=== PATIENT | male | born 1985 ===

== ENCOUNTER 2022-06-13 12:44 | Emergency (ER) | payer SELFPAY ==
[2022-06-13 12:47] VITALS: BP 123/82; PULSE 71; RESP 20; TEMP 36.6; O2SAT 100; BMI 23.7
[2022-06-13 13:00] VITALS: BP 100/69; PULSE 84; O2SAT 97
[2022-06-13 13:09] VITALS: BP 123/80; PULSE 81; RESP 14; TEMP 36.4; O2SAT 100
[2022-06-13 13:15] VITALS: BP 125/81; PULSE 73; RESP 11; O2SAT 96
[2022-06-13 13:23] LABS: Lactate* 1.6 mmol/L (0.5-1.9)
[2022-06-13 13:26] LABS: Basophils Absolute Auto 0.02 K/uL (0.00-0.30); Basophils Percent Auto 0.4 % (0.0-3.0); Eosinophils Absolute Auto 0.15 K/uL (0.00-0.50); Eosinophils Percent Auto 2.6 % (0.0-7.0); Hematocrit 39.5 % (37.0-53.0); Hemoglobin* 13.6 gm/dL (13.5-17.5); Immature Granulocytes Abs Auto 0.01 K/uL (0.00-0.30); Lymphocytes Absolute Auto 1.53 K/uL (0.90-2.90); Lymphocytes Percent Auto 26.9 % (20-44); Mean Corpuscular HGB Conc 34 gm/dL (32-36); Mean Corpuscular Hemoglobin 30 pg (26-34); Mean Corpuscular Volume 86 fL (80-100); Monocytes Percent Auto 9.5 % (0.0-11.0); Neutrophils Absolute Auto 3.43 K/uL (1.7-7.0); Neutrophils Percent Auto 60.4 % (42.0-72.0); Platelet Count* 327 K/uL (140-440); RDW Coefficient of Variation % 12.4 % (11.5-15.5); Red Blood Count 4.58 m/uL (4.30-5.90); White Blood Count* 5.68 K/uL (4.50-11.00)
--- NOTE | 2022-06-13 13:26 | ED_ITS ---
HPI - General Adult General Date Seen: 06/13/22 Chief complaint: Overdose Stated complaint: Drug Ingestion Time Seen by Provider: 06/13/22 12:46 Source: patient History of Present Illness HPI narrative: Patient is a 36-year-old male who was at his grandmother's house. He was reportedly being loud and causing a disturbance, so police were called. On their arrival, they realized he had warrants out for arrest. They took him into custody, and EN route to long term he told them that he had ingested a packet of meth. He tells me he did this to avoid a drug charge. He says he has done this before on multiple occasions without any adverse consequences. He says the packet was intact, he says it was more than an ounce but less than an 8 ball. He has some heartburn, but denies any abdominal pain, nausea or vomiting. He does not have any chest pain or difficulty breathing. He is not tachycardic or febrile, nor is he agitated at this time. He was reported to tell the maintainer operator just to shoot him, as he ?just wanted to ?. He is very specific with me that he has no suicidal thoughts, does not want to . He denies ingesting the meth with intention to harm himself. He says he has never tried to harm him self. Does not have any history of depression or anxiety per his report. Is not supposed to be on any medications for mental health. Has never been hospitalized for mental health reasons. He also uses GHB, which he says he used last this morning. He denies alcohol use. He uses marijuana. He denies any other medical history aside from shoulder dislocation/subluxation. He does smoke cigarettes and requests a nicotine patch. Related Data Home Medications Medication Instructions Recorded Confirmed No Known Home Medications 06/13/22 06/13/22 Allergies Allergy/AdvReac Type Severity Reaction Status Date / Time No Known Drug Allergies Allergy Verified 06/13/22 12:47 Review of Systems Status of ROS: Reports: 10 or more systems reviewed and unremarkable except as noted in History and below [facility] Social History Smoking Status: Current every day smoker What tobacco products do you use: cigarettes Do you use any of these nicotine containing products: None Second hand tobacco smoke exposure: Yes How often do you have a drink containing alcohol: monthly or less How many standard drinks containing alcohol do you have on a typical day: 1 or 2 How often do you have six or more drinks on one occasion: Less than monthly AUDIT-C Alcohol total score: 2 Non-prescribed substance use: marijuana (any form), crack/cocaine, amphetamines/methamphetamines, sedatives/tranquilizers, opiods/painkillers and other Non-prescribed substance use details: GHB daily, whatever I can get my hands on Exam Narrative: Exam Narrative: Vital signs as noted above. In general, an alert, well-appearing patient. Head: Normocephalic, atraumatic. Eyes: Pupils are equal reactive. Extraocular movements are full. Conjunctivae are normal. ENT: Mucous membranes are moist. Throat is normal. Neck: Supple without lymphadenopathy. Heart: Regular rate and rhythm. No murmur or rub. Lungs: Clear bilaterally. No increased work of breathing, crackles or wheezes. Abdomen: Soft and nontender. No organomegaly. Extremities: Well perfused. No edema. No calf tenderness. Pulses intact. Neurologic: Patient is alert and oriented to person and place. Speech is fluent. Face is symmetric. Moves all extremities equally. Affect: Normal, cooperative. Skin: Warm and dry. Well perfused. Const: Vital Signs, click to edit/add: Vital Signs - 24 hr 06/13/22 12:47 06/13/22 13:09 06/13/22 13:00 Temperature 97.9 F 97.6 F Pulse Rate [Left P ulse Oximeter] 71 81 84 Respiratory Rate 20 14 Blood Pressure [Le ft Upper Arm] 123/82 123/80 100/69 Pulse Oximetry 100 100 97 Oxygen Delivery Me thod Room Air Room Air Room Air 06/13/22 13:15 06/13/22 13:30 06/13/22 14:00 Temperature Pulse Rate [Left P ulse Oximeter] 73 76 75 Respiratory Rate 11 L 15 16 Blood Pressure [Le ft Upper Arm] 125/81 121/89 116/82 Pulse Oximetry 96 94 100 Oxygen Delivery Me thod Documenting provider has reviewed patient's vital signs: yes Course Course Hospital Course: Patient is maintained on the monitor and oximetry. An IV will be established. EKG by my review showed a normal sinus rhythm, ventricular rate of 65. No acute ST segment changes. Normal QT. labs pending at this time. Talk with poison Control who recommended 8 hour observation from the time of ingestion, which would be at approximately 8:30 p.m.. At this time, he is not showing any signs of toxicity such as agitation, hyperthermia, tachycardia. Will observe closely and await lab results. Given that the ingestion was to avoid arrest, and that he denies any suicidality to me, I think that his off hand remark to the police that he would just as soon be does not represent active suicidal ideation. Patient has remained well without development of any interim symptoms. Labs are reassuring, CBC and electrolytes are normal. Troponin is negative. LFTs are normal. Drug screen is not surprisingly notable for amphetamines, methamphetamines and marijuana. Tylenol and aspirin levels are negative. We contacted poison Control, who recommended watching him for 8 hours after the time of ingestion to monitor for development of any symptoms. At this time, aside from being frustrated by boredom, he is clinically stable. Patient became increasingly impatient with staying in the emergency department. He wanted to know whether the police were going to return to arrest him. Ultimately he decided that he wanted to leave. He does appear clinically sober to me. I do not believe that he is suicidal. I do not think there is any reason medically for him to be holdable at this point. Police have not indicated any desire to stay with him here. As such, I think he is free to leave. We certainly have reviewed with him that if the bag of meth which he states he swallowed were to rupture, that he could be risk of significant toxicity, morbidity, possibly even . He understands this and states that he wants to leave. He signed out AMA. Vital Signs Vital signs: Initial Vital Signs Temperature 97.9 F 06/13/22 12:47 Temperature Source Temporal Artery Scan 06/13/22 12:47 Pulse Rate 71 06/13/22 12:47 Respiratory Rate 20 06/13/22 12:47 Respiratory Effort 06/13/22 12:47 Respiratory Depth Normal 06/13/22 12:47 Respiratory Pattern 06/13/22 12:47 Blood Pressure 123/82 06/13/22 12:47 Blood Pressure Mean 95 06/13/22 12:47 Blood Pressure Position Sitting 06/13/22 12:47 Pulse Oximetry 100 06/13/22 12:47 Oxygen Delivery Method 06/13/22 12:47 Vital Signs Temperature 97.9 F 06/13/22 12:47 Pulse Rate 71 06/13/22 12:47 Respiratory Rate 20 06/13/22 12:47 Blood Pressure 123/82 06/13/22 12:47 Pulse Oximetry 100 06/13/22 12:47 Oxygen Delivery Method 06/13/22 12:47 Temperature 97.6 F 06/13/22 13:09 Pulse Rate 75 06/13/22 14:00 Respiratory Rate 16 06/13/22 14:00 Blood Pressure 116/82 06/13/22 14:00 Pulse Oximetry 100 06/13/22 14:00 Oxygen Delivery Method 06/13/22 13:09 Medical Decision Making Lab Data Labs: Lab Results 06/13/22 06/13/22 06/13/22 Range/Units 12:50 13:13 13:13 WBC 5.68 (4.50-11.00) K/uL RBC 4.58 (4.30-5.90) m/uL Hgb 13.6 (13.5-17.5) gm/dL Hct 39.5 (37.0-53.0) % MCV 86 (80-100) fL MCH 30 (26-34) pg MCHC 34 (32-36) gm/dL RDW Coeff of Matt 12.4 (11.5-15.5) % Plt Count 327 (140-440) K/uL Neut % (Auto) 60.4 (42.0-72.0) % Lymph % (Auto) 26.9 (20-44) % [place] % (Auto) 9.5 (0.0-11.0) % Eos % (Auto) 2.6 (0.0-7.0) % Baso % (Auto) 0.4 (0.0-3.0) % Neut # (Auto) 3.43 (1.7-7.0) K/uL Lymph # (Auto) 1.53 (0.90-2.90) K/uL [place] # (Auto) 0.50 (0.00-0.90) K/UL Eos # (Auto) 0.15 (0.00-0.50) K/uL Baso # (Auto) 0.02 (0.00-0.30) K/uL Abs Immat Gran (auto) 0.01 (0.00-0.30) K/uL Sodium 137 (135-149) mmol/L Potassium 3.7 (3.6-5.1) mmol/L Chloride 102 (96-114) mmol/L Carbon Dioxide 27 (20-32) mmol/L BUN 20 (5-24) mg/dL Creatinine 0.8 (0.5-1.5) mg/dL Estimated Creat Clear 124.03 Estimated GFR 118 ml/min Glucose 102 (60-115) mg/dL Lactate (0.5-1.9) mmol/L Calcium 8.8 (8.4-10.6) mg/dL Total Bilirubin (0.1-1.5) mg/dL Direct Bilirubin (0.0-0.5) mg/dL AST (12-35) U/L ALT (4-50) U/L Alkaline Phosphatase (40-150) U/L C-Reactive Protein < 0.5 L (0.5-1.0) mg/dL Total Protein (6.0-8.3) g/dL Albumin (3.3-5.0) g/dL Salicylates (1.0-10) mg/dL Urine Opiates Screen (Negative) Ur Buprenorphine Scrn (Negative) Ur Oxycodone Screen (Negative) Urine Methadone Screen (Negative) Ur Propoxyphene Screen (Negative) Acetaminophen (10.0-30.0) ug/mL Ur Barbiturates Screen (Negative) U Tricyclic Antidepress (Negative) Ur Phencyclidine Scrn (Negative) Ur Amphetamines Screen (Negative) U Methamphetamines Scrn (Negative) U Benzodiazepines Scrn (Negative) Urine Cocaine Screen (Negative) U Marijuana (THC) Screen (Negative) Ur Drug Screen Comment Ethyl Alcohol (0.01-0.03) % POC Troponin I 0.00 L (0.01-0.04) ng/ml 06/13/22 06/13/22 06/13/22 Range/Units 13:13 13:13 13:13 WBC (4.50-11.00) K/uL RBC (4.30-5.90) m/uL Hgb (13.5-17.5) gm/dL Hct (37.0-53.0) % MCV (80-100) fL MCH (26-34) pg MCHC (32-36) gm/dL RDW Coeff of Matt (11.5-15.5) % Plt Count (140-440) K/uL Neut % (Auto) (42.0-72.0) % Lymph % (Auto) (20-44) % [place] % (Auto) (0.0-11.0) % Eos % (Auto) (0.0-7.0) % Baso % (Auto) (0.0-3.0) % Neut # (Auto) (1.7-7.0) K/uL Lymph # (Auto) (0.90-2.90) K/uL [place] # (Auto) (0.00-0.90) K/UL Eos # (Auto) (0.00-0.50) K/uL Baso # (Auto) (0.00-0.30) K/uL Abs Immat Gran (auto) (0.00-0.30) K/uL Sodium (135-149) mmol/L Potassium (3.6-5.1) mmol/L Chloride (96-114) mmol/L Carbon Dioxide (20-32) mmol/L BUN (5-24) mg/dL Creatinine (0.5-1.5) mg/dL Estimated Creat Clear Estimated GFR ml/min Glucose (60-115) mg/dL Lactate 1.6 (0.5-1.9) mmol/L Calcium (8.4-10.6) mg/dL Total Bilirubin 0.6 (0.1-1.5) mg/dL Direct Bilirubin 0.2 (0.0-0.5) mg/dL AST 35 (12-35) U/L ALT 26 (4-50) U/L Alkaline Phosphatase 73 (40-150) U/L C-Reactive Protein (0.5-1.0) mg/dL Total Protein 6.9 (6.0-8.3) g/dL Albumin 4.3 (3.3-5.0) g/dL Salicylates < 1.0 L (1.0-10) mg/dL Urine Opiates Screen (Negative) Ur Buprenorphine Scrn (Negative) Ur Oxycodone Screen (Negative) Urine Methadone Screen (Negative) Ur Propoxyphene Screen (Negative) Acetaminophen < 10.0 L (10.0-30.0) ug/mL Ur Barbiturates Screen (Negative) U Tricyclic Antidepress (Negative) Ur Phencyclidine Scrn (Negative) Ur Amphetamines Screen (Negative) U Methamphetamines Scrn (Negative) U Benzodiazepines Scrn (Negative) Urine Cocaine Screen (Negative) U Marijuana (THC) Screen (Negative) Ur Drug Screen Comment Ethyl Alcohol < 0.01 L (0.01-0.03) % POC Troponin I (0.01-0.04) ng/ml 06/13/22 Range/Units 13:55 WBC (4.50-11.00) K/uL RBC (4.30-5.90) m/uL Hgb (13.5-17.5) gm/dL Hct (37.0-53.0) % MCV (80-100) fL MCH (26-34) pg MCHC (32-36) gm/dL RDW Coeff of Matt (11.5-15.5) % Plt Count (140-440) K/uL Neut % (Auto) (42.0-72.0) % Lymph % (Auto) (20-44) % [place] % (Auto) (0.0-11.0) % Eos % (Auto) (0.0-7.0) % Baso % (Auto) (0.0-3.0) % Neut # (Auto) (1.7-7.0) K/uL Lymph # (Auto) (0.90-2.90) K/uL [place] # (Auto) (0.00-0.90) K/UL Eos # (Auto) (0.00-0.50) K/uL Baso # (Auto) (0.00-0.30) K/uL Abs Immat Gran (auto) (0.00-0.30) K/uL Sodium (135-149) mmol/L Potassium (3.6-5.1) mmol/L Chloride (96-114) mmol/L Carbon Dioxide (20-32) mmol/L BUN (5-24) mg/dL Creatinine (0.5-1.5) mg/dL Estimated Creat Clear Estimated GFR ml/min Glucose (60-115) mg/dL Lactate (0.5-1.9) mmol/L Calcium (8.4-10.6) mg/dL Total Bilirubin (0.1-1.5) mg/dL Direct Bilirubin (0.0-0.5) mg/dL AST (12-35) U/L ALT (4-50) U/L Alkaline Phosphatase (40-150) U/L C-Reactive Protein (0.5-1.0) mg/dL Total Protein (6.0-8.3) g/dL Albumin (3.3-5.0) g/dL Salicylates (1.0-10) mg/dL Urine Opiates Screen Negative (Negative) Ur Buprenorphine Scrn Negative (Negative) Ur Oxycodone Screen Negative (Negative) Urine Methadone Screen Negative (Negative) Ur Propoxyphene Screen Negative (Negative) Acetaminophen (10.0-30.0) ug/mL Ur Barbiturates Screen Negative (Negative) U Tricyclic Antidepress Negative (Negative) Ur Phencyclidine Scrn Negative (Negative) Ur Amphetamines Screen POSITIVE A* (Negative) U Methamphetamines Scrn POSITIVE A* (Negative) U Benzodiazepines Scrn Negative (Negative) Urine Cocaine Screen Negative (Negative) U Marijuana (THC) Screen POSITIVE A* (Negative) Ur Drug Screen Comment SEE NOTE Ethyl Alcohol (0.01-0.03) % POC Troponin I (0.01-0.04) ng/ml Discharge Plan Discharge Clinical Impression: Ingestion of toxin, Methamphetamine use Condition: Stable Additional Instructions: Return for any new symptoms such as agitation, tremor, fever, heart racing. Prescriptions: No Action No Known Home Medications [facility]
[2022-06-13] MEDS: 0.9 % SODIUM CHLORIDE 1000 ml 1,000 ML IV (13:29)
[2022-06-13 13:30] VITALS: BP 121/89; PULSE 76; RESP 15; O2SAT 94
[2022-06-13 13:32] LABS: Slide Review Reflex No
[2022-06-13] MEDS: NICOTINE 21 MG PATCH 1 PATCH TRANSDERMA (13:41)
[2022-06-13] MEDS: CALCIUM CARBONATE 500 MG CHEW PO (13:42)
[2022-06-13 13:58] LABS: Chloride* 102 mmol/L (96-114); Sodium* 137 mmol/L (135-149)
[2022-06-13 13:59] LABS: Potassium* 3.7 mmol/L (3.6-5.1)
[2022-06-13 14:00] VITALS: BP 116/82; PULSE 75; RESP 16; O2SAT 100
[2022-06-13 14:01] LABS: Creatinine* 0.8 mg/dL (0.5-1.5); Est. Creatinine Clearance* 124.03; Estimated Glomerular Filt Rate 118 ml/min
[2022-06-13 14:02] LABS: Blood Urea Nitrogen* 20 mg/dL (5-24); Calcium* 8.8 mg/dL (8.4-10.6); Carbon Dioxide* 27 mmol/L (20-32); Glucose* 102 mg/dL (60-115)
[2022-06-13 14:05] LABS: C Reactive Protein* < 0.5 mg/dL (0.5-1.0)
[2022-06-13 14:16] LABS: Albumin* 4.3 g/dL (3.3-5.0)
[2022-06-13 14:18] LABS: Bilirubin Direct* 0.2 mg/dL (0.0-0.5); Bilirubin Total* 0.6 mg/dL (0.1-1.5); Total Protein* 6.9 g/dL (6.0-8.3)
[2022-06-13 14:19] LABS: Alanine Aminotransferase* 26 U/L (4-50); Alkaline Phosphatase* 73 U/L (40-150); Aspartate Amino Transferase* 35 U/L (12-35)
[2022-06-13 14:21] LABS: Salicylate* < 1.0 mg/dL (1.0-10)
[2022-06-13 14:22] LABS: Acetaminophen* < 10.0 ug/mL (10.0-30.0)
[2022-06-13 14:27] LABS: Cannabinoid Screen Urine POSITIVE (Negative); Cocaine Screen Urine Negative (Negative); Phencyclidine Screen Urine Negative (Negative)
[2022-06-13 14:28] LABS: Amphetamine Screen Urine POSITIVE (Negative); Barbiturate Screen Urine Negative (Negative); Benzodiazepines Screen Urine Negative (Negative); Buprenorphine Screen Urine Negative (Negative); Methadone Screen Urine Negative (Negative); Methamphetamines Screen Urine POSITIVE (Negative); Opiate Screen Urine Negative (Negative); Oxycodone Screen Urine Negative (Negative); Tricyclic Antidepressant Urine Negative (Negative)
[2022-06-13 15:36] LABS: Ethanol* < 0.01 % (0.01-0.03)
--- NOTE | 2022-06-13 16:07 | ED.NURSE ---
Patient asked what would happen if I left. Information regarding dangers of meth ingestion and poison controls recommendations were reviewed. Patient adamant he will leave. MD updated, he is not holdable. AMA form signed and IV removed.
== END 2022-06-13 16:19 | disposition left against medical advice (07) ==
PROVIDERS: Emergency Provider Emergency Medicine
DX: T43.624A Poisoning by amphetamines, undetermined, initial encounter (principal); Z53.29 Procedure and treatment not carried out because of patient's decision for other reasons; F15.90 Other stimulant use, unspecified, uncomplicated; F17.210 Nicotine dependence, cigarettes, uncomplicated
CPT/HCPCS: 36415; 80048; 80076; 80143; 80179; 80306; 82077; 83605; 84484; 85025; 86140; 93005; 96360; 96361; 99284; A9270; J7030; S4990